=== PATIENT | female | born 1995 | race Caucasian/White ===

== ENCOUNTER 2022-08-17 13:59 | Outpatient (CLI) | payer OTHER, SELFPAY ==
--- NOTE | 2022-08-17 14:00 | CRLHL7_ITS ---
For Patients: As a result of the Cures Act, medical imaging exams and procedure reports are released immediately into your electronic medical record. You may view this report before your referring provider. If you have questions, please contact your health care provider. INDICATION: First trimester scan, establish dates. COMPARISON: None. TECHNIQUE: Real-time jara-scale imaging of the pelvis was performed. FINDINGS: Sonographic imaging demonstrates a single living intrauterine gestation. The embryo demonstrates a regular cardiac rate measuring 160 beats per minute. The embryo`s crown-rump length measurement of 4.0 cm corresponds to a gestational age of 10 weeks 6 days with a sonographic due date of 03/09/2023. There is a normal-appearing yolk sac. There are no gross abnormalities noted within the embryo at this early state of development. The gestational sac has a normal appearance. There is no evidence of a perigestational hemorrhage. The amount of fluid within the sac appears appropriate for gestational age. The cervix is closed. The myometrium appears normal. The ovaries are of normal size. There are no suspicious fluid collections noted in the cul-de-sac. IMPRESSION: Normal first trimester OB ultrasound exam. Gestational age calculated at 10 weeks 6 days with a sonographic due date of 03/09/2023. Dictated by Ozzy Benito MD @ 08/18/2022 11:22:22 AM (Electronically Signed)
== END 2022-08-17 14:00 | disposition home or self-care (01) ==
LOC: US 14:02
PROVIDERS: PCP Advanced Practice Midwife; Visit Provider Registered Nurse
DX: Z34.92 Encounter for supervision of normal pregnancy, unspecified, second trimester (principal); O35.AXX0 Maternal care for other (suspected) fetal abnormality and damage, fetal facial anomalies, not applicable or unspecified; Z3A.19 19 weeks gestation of pregnancy
CPT/HCPCS: 76801

== ENCOUNTER 2022-08-17 15:30 | Outpatient (CLI) | payer OTHER, SELFPAY ==
[2022-08-17 18:11] LABS: HIV 1/2/P24 Combo Screen* Negative (Negative)
[2022-08-17 21:09] LABS: Hepatitis B Surface Antigen* Negative (Negative)
[2022-08-17 21:26] LABS: Hepatitis C Virus Antibody* Negative (Negative)
[2022-08-17 21:43] LABS: Chlamydia DNA Amplified* NOT DETECTED (No Detected); GC DNA Amplified* NOT DETECTED (No Detected)
[2022-08-19 23:52] LABS: Rapid Plasma Reagin (RPR) Non Reactive (Non Reactive)
[2022-08-20 03:42] LABS: Varicella-Zoster Virus Ab, IgG 912.1 IV
[2022-08-20 03:47] LABS: Rubella Antibody IgG 6.5 IU/mL
== END 2022-08-17 15:31 | disposition home or self-care (01) ==
PROVIDERS: PCP Advanced Practice Midwife; Visit Provider Advanced Practice Midwife
DX: Z34.91 Encounter for supervision of normal pregnancy, unspecified, first trimester (principal); Z3A.10 10 weeks gestation of pregnancy
CPT/HCPCS: 86592; 86703; 86762; 86787; 86803; 86850; 86900; 86901; 87086; 87340; 87491; 87591

== ENCOUNTER 2022-10-18 12:52 | Outpatient (CLI) | payer OTHER, SELFPAY ==
--- NOTE | 2022-10-18 13:00 | CRLHL7_ITS ---
For Patients: As a result of the Century Cures Act, medical imaging exams and procedure reports are released immediately into your electronic medical record. You may view this report before your referring provider. If you have questions, please contact your health care provider. INDICATION: Evaluate anatomy. COMPARISON: 08/17/2022 TECHNIQUE: Real time jara scale imaging of the fetus was performed as well as color Doppler analysis of the umbilical vessels. FINDINGS: Sonographic imaging demonstrates a single living intrauterine gestation. Fetus demonstrates a regular cardiac rate of 152 beats per minute. Fetus has a vertex position. The placenta lies posteriorly without evidence of placenta previa. The edge of the placenta is located 4.3 cm from the internal cervical os. Amniotic fluid volume appears normal. Single deepest vertical pocket: 3.4 cm. The cervix is closed and measures 4.3 cm in length. The composite ultrasound gestational age is calculated at 19 weeks 5 days with an estimated sonographic due date of 03/09/2023. The estimated weight is 300 grams which lies at the 37th %. The following biometric measurements were obtained: Biparietal diameter: 4.4 cm/19 weeks 3 days 37th% Head circumference: 16.4 cm/19 weeks 1 day 17th% Abdominal circumference: 14.8 cm/20 weeks 1 day 58th% Femur length: 3.0 cm/19 weeks 1 day 22nd% The HC/AC ratio measures: 1.10 range (1.08-1.26) On anatomic survey, there is a normal appearance of the cerebral ventricles, cavum septi pellucidi, cisterna magna and cerebellum. Incomplete visualization of the nose and lips due to position. Normal profile. The cervical, thoracic and lumbar spine are well visualized and appear normal. There is a normal four-chamber heart view and the left and right ventricular outflow tracts appear normal. The diaphragm and stomach appear normal. The kidneys and bladder also appear normal. Incidental pelviectasis regarding 1 of the kidneys measuring 3.6 millimeters considered normal. There is a normal three-vessel cord and cord insertion site. The four extremities appear normal. IMPRESSION: Concordance of clinical and sonographic dating. Incomplete visualization of the nose and lips due to position. Remainder of the anatomic survey is unremarkable. Incidental pelviectasis of 1 of the kidneys measuring 3.6 millimeters is considered normal. Short-term follow-up of the nose and lips suggested. Dictated by Ozzy Benito MD @ 10/19/2022 10:22:20 AM (Electronically Signed)
== END 2022-10-18 12:53 | disposition home or self-care (01) ==
LOC: US 12:53
PROVIDERS: Visit Provider Advanced Practice Midwife
DX: Z34.92 Encounter for supervision of normal pregnancy, unspecified, second trimester (principal); Z3A.19 19 weeks gestation of pregnancy
CPT/HCPCS: 76805

== ENCOUNTER 2022-12-15 08:28 | Outpatient (CLI) | payer MEDICAID, SELFPAY | END 2022-12-15 08:29 | disposition home or self-care (01) | LOC: LKVREF 08:29 | PROVIDERS: Visit Provider Advanced Practice Midwife | DX: Z34.93 Encounter for supervision of normal pregnancy, unspecified, third trimester (principal); Z3A.28 28 weeks gestation of pregnancy | CPT/HCPCS: 82950; 85461; 86592; 86850; 86870; 86880; 86900; 86901; J2791 ==

== ENCOUNTER 2023-02-08 14:18 | Outpatient (CLI) | payer BC, SELFPAY ==
[2023-02-09 13:53] LABS: Strep B DNA Probe NEGATIVE (Negative)
[2023-02-09 14:57] LABS: Strep B Pen/Amox Allergy No
== END 2023-02-08 14:19 | disposition home or self-care (01) ==
LOC: NFLDREF 14:18
PROVIDERS: Visit Provider Advanced Practice Midwife
DX: Z34.93 Encounter for supervision of normal pregnancy, unspecified, third trimester (principal); Z3A.35 35 weeks gestation of pregnancy
CPT/HCPCS: 87081; 87653

== ENCOUNTER 2023-02-15 15:00 | Outpatient (CLI) | payer BC, SELFPAY ==
--- NOTE | 2023-02-15 15:00 | CRLHL7_ITS ---
For Patients: As a result of the Cures Act, medical imaging exams and procedure reports are released immediately into your electronic medical record. You may view this report before your referring provider. If you have questions, please contact your health care provider. INDICATION: MEASURING SMALL FOR DATES COMPARISON: 10/18/2022 TECHNIQUE: Real time jara scale imaging of the fetus was performed as well as color Doppler and spectral Doppler analysis of the umbilical artery. FINDINGS: Sonographic imaging demonstrates a single living intrauterine gestation. Fetus demonstrates a regular cardiac rate of 132 beats per minute. Fetus has a vertex position. The placenta lies posteriorly. Amniotic fluid volume appears normal and there is a single deepest vertical pocket: 5.6 cm. The estimated weight is 2447gm which lies at the 7th %. On the prior OB ultrasound exam dated 10/18/2022 the estimated weight was at the %. BPD 4th percentile. HC less than 3rd percentile. AC 20th percentile. FL less than 3rd percentile. The HC/AC ratio measures 0.99 range (0.94-1.11). There is adequate diastolic blood flow within the umbilical artery. The S/D ratio measures 2.9. Normal gross body movements and tone. Absent respiratory activity. IMPRESSION: Sonographic gestational age 34 weeks 2 days and sonographic due date 03/27/2023. Sonographic age 18 days behind the clinical age. Estimated weight 7th percentile. Abdominal circumference 28th percentile. Head circumference and femur length less than 3rd percentile. Biophysical profile 12/09. Dictated by Ozzy Benito MD @ 02/16/2023 12:42:08 PM (Electronically Signed)
== END 2023-02-15 15:01 | disposition home or self-care (01) ==
LOC: US 15:01
PROVIDERS: Visit Provider Advanced Practice Midwife
DX: Z34.83 Encounter for supervision of other normal pregnancy, third trimester (principal); Z36.89 Encounter for other specified antenatal screening; Z3A.36 36 weeks gestation of pregnancy
CPT/HCPCS: 76816; 76819; 76820

== ENCOUNTER 2023-02-22 08:51 | Outpatient (CLI) | payer BC, SELFPAY ==
--- NOTE | 2023-02-22 09:15 | CRLHL7_ITS ---
For Patients: As a result of the Cures Act, medical imaging exams and procedure reports are released immediately into your electronic medical record. You may view this report before your referring provider. If you have questions, please contact your health care provider. INDICATION: female. Small for gestational age. Follow-up. TECHNIQUE: Transabdominal obstetrical ultrasound. Color Doppler waveform analysis of the umbilical artery. COMPARISON: February 15, 2023. FINDINGS: Single living intrauterine in vertex presentation. Posterior placenta. heart rate 134 beats per minute. Normal amniotic fluid. Single deepest pocket measurement 6 cm. The umbilical artery systolic to diastolic ratio is 2 point is 2.4 which is within normal limits. Biophysical profile score 8/8 with 2 points given each for breathing, movement, tone, and amniotic fluid. IMPRESSION : Single living intrauterine with a biophysical profile score of 8 out of 8. Umbilical artery systolic to diastolic ratio is within normal limits at 2.4. Dictated by Evert Carmichael MD @ 02/23/2023 10:03:08 PM (Electronically Signed)
== END 2023-02-22 08:52 | disposition home or self-care (01) ==
LOC: US 08:51
PROVIDERS: Visit Provider Advanced Practice Midwife
DX: Z34.93 Encounter for supervision of normal pregnancy, unspecified, third trimester (principal); Z3A.37 37 weeks gestation of pregnancy
CPT/HCPCS: 76819; 76820

== ENCOUNTER 2023-02-25 06:50 | Inpatient (IN) | payer BC, SELFPAY ==
[2023-02-25] VITALS (17 sets, daily range): BP systolic 100–132; BP diastolic 55–81; PULSE 58–82; RESP 16; TEMP 36.7–37; O2SAT 96–97; BMI 25.4
--- NOTE | 2023-02-25 08:00 | P.LDBA_ITS ---
Subjective History of Present Illness Date Seen: 02/25/23 Narrative: Patient is being admitted to Labor and Delivery for IOL for IUGR. She is a 27 year old at 38.2 weeks gestation. Her full history and physical was dictated by Gerardo Martel CNM on 02/15/23. Please see this for details. Tania denies feeling contractions, leaking fluids or abnormal discharge. She feels that she lost her mucus plug earlier this week. She is appreciating good movement. We had an extensive discussion about IOL options including Cytotec, cook catheter, Pitocin and AROM. Risk and benefits of each discussed. Baby feels low but ballotable so decision was made to proceed with Pitocin and consider AROM later. 1. A Negative - Needs RhoGam 28 w: 12/15/2022 PP: 2. Rubella non-immune - needs MMR pp. 3. Missing nose and lip views on anatomy scan. Declined follow up u/s. 4. Measuring small for dates. Growth US: &5, BPD 4%, HC <3%, AC 20%, FL <3%. Consulted with Dr. Sher ARMSTRONG on 02/18, BPP with dopplers on 02/22 Delivery at 38.0-38.6 weeks Specific Issues/Plans FOB Sylvester (they are not together). Planning on having her sister for her main support. Only wants Sylvester present for the beginning of labor. H&P 02/15/23 by Jose Martel CNM IOL scheduled for 02/25 1. A Negative - Needs RhoGam 28 w: 12/15/2022 PP: 2. Rubella non-immune - needs MMR pp. 3. Missing nose and lip views on anatomy scan. Declined follow up u/s. 4. Measuring small for dates. Growth US: &5, BPD 4%, HC <3%, AC 20%, FL <3%. Consulted with Dr. Sher ARMSTRONG on 02/18, BPP with dopplers on 02/22 Delivery at 38.0-38.6 weeks COVID: declines FLU: declines Tdap: OB - Problem Based A/P Additional Plan (1) Encounter for induction of labor: Status: Acute (2) growth restriction: Status: Acute Plan ASSESSMENT:? at 38.2 weeks gestation? GBS negative A-? Uncomplicated ? IOL for IUGR? ?? PLAN:? 1. Reviewed risks and benefits of IOL with pitocin vs cytotec vs cook catheter vs AROM. Pt prefers Pitocin. Can consider AROM to follow if needed.? 2. Desires water . Consent signed. Hep C negative.? 3. Candidate for analgesia of choice. Planning unmedicated .? 4. Anticipate ? 5. IV in place for Pitocin administration. 6. Continuos monitoring per unit policy while on Pitocin. ? Delivery/Labor/Induction Plan Plan: induction Induction method: per pitocin protocol OB Result Labs Blood Type: A (-) negative GBS Status: negative OB Exam Physical Exam Vital signs: Temp Pulse Resp BP 98.4 F 76 16 122/77 02/25/23 07:43 02/25/23 07:41 02/25/23 07:43 02/25/23 07:41 Narrative: Psychiatric:? Alert and oriented x3? HEENT:? Normocephalic, atraumatic? Neck:? Supple without adenopathy or thyromegaly? Lungs:? Clear to auscultation bilaterally? Heart:? Regular rate and rhythm, no murmur, rub or gallop? Abdomen:? Soft, nontender, and gravid? Extremities:? No edema or erythema? Detailed Labor and Delivery Exam Patient Gravid: Yes Dilation (cm): 4 Effacement (%): 90 Cervix position: mid Consistency: soft Contraction Frequency: none per TOCO or pt report Fetus (Single) Station: -1 Amniotic Membrane Status: intact Heart Rate Baseline: 120 Monitor Accelerations: Present Monitor Decelerations: None Kennel Technician Variability: Moderate (6-25)
[2023-02-25] MEDS: LACTATED RINGERS 1000 ML 1,000 ML 125 ML IV (08:41)
[2023-02-25] MEDS: OXYTOCIN 30 unit/500 ML in NS 30 UNIT/500 ML BAG IVPB (08:46)
--- NOTE | 2023-02-25 16:53 | W.PM.OBVAGDE ---
OB Procedure Vag Delivery Mother Details Mother Details: The patient is a 27 year-old, 2, Para 1, admitted on 02/25/23 at 38.2 Days gestation.Patient was admitted for IOL for IUGR. She was started on Pitocin after admission and AROM was performed to augment labor. She did not feel painful contractions until approximately 2 hours after AROM. She then choose to get into the tub to labor. After she was determined to be complete the Pitocin was turned off as she was elizabeth regularly and there were variable decelerations noted with some contractions. She continued to progress and pushing with the urge to delivery. AROM noted at 1206 with clear fluid. Patient was complete at 1442 and pushing at 1456. of a viable male at 1554 in hands and knees in the tub. She pushing in multiple positions in the tub. Vertex delivered LANE. No nuchal cord or shoulder. Body delivered easily and without incident. passed to mothers abdomen with a vigorous cry. There was a very short cord so she was instructed to sit on the tub seat out of the water and held baby low on her abdomen so there was not excessive force on the cord. Cord was clamped and cut at > 5 minutes. APGARS were 7 at one minute and 9 at five minutes respectively. Mouth was bulb suctioned. Intact placenta with a 3 vessel cord delivered spontaneously at 1620. There were trailing membranes after the placenta was out that did delivery with teasing. There was a question if the membranes tore at the very end with a possibility of retained membranes. A manual sweep was performed to search for retained products but none were found. A couple of small to medium clots were removed. She used nitrous during the procedure and tolerated fairly. A one time prophylactic dose of antibiotics was ordered. Signs of retained products were reviewed with the patient and her support person. Placenta was sent to pathology. Fundus firm. The perineum was found to be intact. QBL 125 cc plus EBL 75 on the pads under her. Mother and baby stable; mother plans to breastfeed. weight 6lb 7oz.? : 2 Para: 2 Weeks Gestation: 38.2 Admission Date: 02/25/23 Additional Details Amniotic Membrane Status: AROM Amniotic Membrane Rupture Date: 02/25/23 Amniotic Membrane Rupture Time: 12:06 Amniotic Membrane Fluid Description: Clear Analgesia/Anesthesia Type: Nitrous Oxide Waterbirth: Yes Pitcoin: Yes (for induction and ) Intrapartal Events: Labor Induction Induction Method: per pitocin protocol Delivery augmentation: rupture of membranes Labor Onset: 14:00 Complete: 14:42 Pushin:56 Heart: heart tones during second stage were category 2. Baseline 100-110, +accels and moderate variability. Variable decels to the 70's with >50% of the contractions with good return to baseline and maintenance of good variability. Heart tones noted to be in the 90's for about 2 minutes with . Delivery Details Delivery Date: 02/25/23 Delivery Time: 15:54 Route of delivery: Gender: Male Viability: Alive; Heart Rate Present Position at Delivery: OA 1 Minute Interval Total Score: 7 5 Minute Interval Total Score: 9 Additional Details Shoulder Dystocia: No Placenta Delivery Time: 16:20 Placental Delivery Description: Spontaneous (spontaneous delivery with trailing membranes. Manual sweep to check for retained products. ) Procedure Done: Global Blood Loss: 200 (175 QBL, 75 EBL) Laceration: None Episiotomy Description: None Blood Loss Measurement Type: QBL Bakri Used: No Sponge/Need Count Correct: Yes Cord Vessel Description: 3 Vessels (very short cord) Event Summary Status: Mother and infant were stable after delivery. Disposition: floor
[2023-02-25] MEDS: AMPICILLIN 2 GM in 0.9 % SODIUM CHLORIDE Mini-bag 100 ML IVPB (17:49)
[2023-02-26 02:30] VITALS: BP 109/64; PULSE 59; RESP 16; TEMP 36.7; O2SAT 97
[2023-02-26 05:40] VITALS: BP 113/74; PULSE 78; RESP 16; TEMP 36.7; O2SAT 97
[2023-02-26] MEDS: IBUPROFEN 600 MG TABLET PO (05:44)
[2023-02-26 09:05] VITALS: BP 116/82; PULSE 70; RESP 16; TEMP 36.6; O2SAT 97
--- NOTE | 2023-02-26 09:24 | P.DS_ITS ---
DS: Providers Provider Time Seen by Provider: 09:25 Date Seen: 02/26/23 Date of admission: 02/25/23 06:50 Primary care physician: Not a Local Provider Admitting Clinician: Mahnaz Martel CNM Attending Physician on discharge: Mahnaz Martel CNM Date of Discharge: 02/26/23 DS: Diagnosis Discharge Diagnosis (1) Normal spontaneous vaginal delivery: Status: Acute (2) Lactating mother: Status: Acute Exam Narrative: Exam Narrative: VSS, afebrile GENERAL APPEARANCE: ?normal affect, alert, no distress MOOD: ?appropriate HEENT: normocephalic, neck supple, full ROM CHEST: ?Symmetrical chest wall movement. ?Normal respiratory effort. ?Clear to auscultation HEART: ?regular rate and rhythm ABDOMEN: ?soft, non-tender. Uterine fundus is firm, at Umbilicus, Midline and is appropriate for the stage of recovery. ?Bowel sounds present. PERINEUM: ?mild edema of the perineum, there are no lacerations EXTREMITIES: ?normal and no edema Const: Vital Signs, click to edit/add: Vital Signs - 24 hr 02/25/23 10:43 02/25/23 10:50 02/25/23 12:28 Temperature 98.1 F Pulse Rate 72 Pulse Rate [Pulse Oximeter] Respiratory Rate 16 Blood Pressure 115/61 Blood Pressure [Ri ght Arm] Pulse Oximetry 97 Oxygen Delivery Me thod 02/25/23 12:52 02/25/23 16:28 02/25/23 16:33 Temperature 98.6 F Pulse Rate 68 60 Pulse Rate [Pulse Oximeter] Respiratory Rate 16 Blood Pressure 100/55 L 120/81 Blood Pressure [Ri ght Arm] Pulse Oximetry Oxygen Delivery Me thod 02/25/23 16:44 02/25/23 16:44 02/25/23 16:59 Temperature 98.6 F Pulse Rate 71 75 Pulse Rate [Pulse Oximeter] Respiratory Rate 16 Blood Pressure 117/81 132/66 Blood Pressure [Ri ght Arm] Pulse Oximetry 97 Oxygen Delivery Me thod 02/25/23 16:59 02/25/23 17:13 02/25/23 17:13 Temperature 98.6 F 98.6 F Pulse Rate 65 Pulse Rate [Pulse Oximeter] Respiratory Rate 16 16 Blood Pressure 125/72 Blood Pressure [Ri ght Arm] Pulse Oximetry 97 97 Oxygen Delivery Me thod 02/25/23 17:28 02/25/23 17:28 02/25/23 17:43 Temperature 98.6 F Pulse Rate 67 58 L Pulse Rate [Pulse Oximeter] Respiratory Rate 16 Blood Pressure 129/78 129/81 Blood Pressure [Ri ght Arm] Pulse Oximetry 97 Oxygen Delivery Me thod 02/25/23 17:43 02/25/23 17:58 02/25/23 17:58 Temperature 98.6 F 98.6 F Pulse Rate 67 Pulse Rate [Pulse Oximeter] Respiratory Rate 16 16 Blood Pressure 121/72 Blood Pressure [Ri ght Arm] Pulse Oximetry 97 97 Oxygen Delivery Me thod 02/25/23 18:13 02/25/23 18:13 02/25/23 18:28 Temperature 98.6 F Pulse Rate 70 69 Pulse Rate [Pulse Oximeter] Respiratory Rate 16 Blood Pressure 120/72 116/66 Blood Pressure [Ri ght Arm] Pulse Oximetry 97 Oxygen Delivery Me thod 02/25/23 18:28 02/25/23 21:43 02/26/23 02:30 Temperature 98.6 F 98.4 F 98.1 F Pulse Rate Pulse Rate [Pulse Oximeter] 70 59 L Respiratory Rate 16 16 16 Blood Pressure Blood Pressure [Ri ght Arm] 126/74 109/64 Pulse Oximetry 97 96 97 Oxygen Delivery Me thod Room Air Room Air 02/26/23 05:40 02/26/23 09:05 Temperature 98.1 F 97.8 F Pulse Rate Pulse Rate [Pulse Oximeter] 78 70 Respiratory Rate 16 16 Blood Pressure Blood Pressure [Ri ght Arm] 113/74 116/82 Pulse Oximetry 97 97 Oxygen Delivery Me thod Room Air Room Air Documenting provider has reviewed patient's vital signs: yes OB - DS: Summary Hospital Course Hospital Course: Tania is a 27 y.o. G 2 P 2 who was admitted to [facility] & [facility] for IOL for IUGR. ?She had an uncomplicated NVD, though there were concerns about the completeness of the placenta membranes. Sweep of uterus done, nothing noted and antibiotics given. Tania is aware of what to observe for for retained membranes. The patient feels well. ?The pain is well controlled with current medications. ?She has no new complaints. ?She is breast feeding and reports things are going well.? the patient has done well.? Vitals have been stable.? She has remained afebrile.? Has a good appetite, is tolerating a general diet. ?She is voiding without difficulty.? She is passing gas and has had a bowel movement.? She is ambulating and denies any dizziness.? Has Small amount of rubra lochia. Problems: none plan: Discharge home with baby. Follow up in 2 weeks and 6 weeks. , may follow up with if needed Infant Gender: Male Discharge Plan: Home Status at Discharge Functional status at discharge: independent ambulation Overall status at discharge: patient is progressing back to baseline Time Spent with Patient Time attestation: Total time spent providing and/or coordinating discharge services: Time spent: Less than 30 minutes Discharge Plan Discharge Disposition: Home, Self-Care Date of Admission: 02/25/23 06:50 Attending Provider on Discharge: Anahi Davis Primary Care Provider: Provider,Not a Local Condition: Stable Anticipated Discharge Date/Time: 02/26/23 17:00 Discharge Medications: New docusate sodium 100 mg Capsule 100 mg PO BID PRNQty: 100 0RF Rx Instructions: Take 1 cap 1-2 times a day as needed for constipation. ibuprofen 600 mg Tablet 600 mg PO Q6H PRNQty: 60 0RF Continued DHA 200 mg capsule 200 mg PO DAILY Rx Instructions: 200 mg orally; sertraline 50 mg tablet 50 mg PO QDAY Qty: 90 0RF Discharge Orders: Discharge Order (Routine); Ordered 02/26/23 Ordered By: Anahi Davis Patient Education: OB Over the Counter Medication Information, OB Vaginal/Breast Feeding Additional Instructions: Follow up in 2 weeks and 6 weeks Activity Level: Activity as Tolerated Discharge Diet: Regular Follow Up Appointments: Provider,Not a Local [Primary Care Provider] - Forms: Machine Talker Info Instructions
[2023-02-26 13:06] VITALS: BP 116/73; PULSE 70; RESP 16; TEMP 36.6; O2SAT 97
[2023-02-26 17:09] VITALS: BP 116/73; PULSE 70; RESP 16; TEMP 36.6; O2SAT 97
== END 2023-02-26 18:20 | disposition home or self-care (01) | DRG 560 ==
PROVIDERS: Admitting Provider Advanced Practice Midwife; Visit Provider Advanced Practice Midwife
DX: O36.5930 Maternal care for other known or suspected poor fetal growth, third trimester, not applicable or unspecified (principal); Z3A.38 38 weeks gestation of pregnancy; Z37.0 Single live birth
CPT/HCPCS: 88341; 88342; A9270; J0290; J7120

== ENCOUNTER 2023-03-28 14:40 | Outpatient (CLI) | payer BC, SELFPAY ==
--- NOTE | 2023-03-28 17:00 | W.PM.LAC.MC ---
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 Geren Jaundice: No Reason for Consult Reason for Consult: concern for tongue tie Past Experience Past Experience: Yes (nursed her older child for about a year) Current Frequency of Day Feedings: every 1 - 2 hours Frequency of Night Feedings: about every 2 hours Both Breasts: Yes Suck: strong initially Latch: wide but slips to nipple Length of Time: 5 - 10 minutes Goals: would like to be more seamless Pumping Pumping: Yes (enough to have supplement for baby) Quantity Pumped: 5 - 10 oz total each time she pumps Supplementing EMB Supplement: Yes (when given a bottle will take 2 - 3 oz) Formula Supplement: No Baby Elimination Number of Wet Diapers a Day: 8 - 10 times/24 hours Number of BM a Day: about 8 times/24 hours Breast/Nipple Condition Breast Information: WNL Maternal Nipple Condition - Left: Common Nipple Maternal Nipple Condition - Right: Common Nipple Sore Nipples: Yes Onsite Pre-Feed weight: 4.306 kg Post-Feed weight: 4.116 kg Milk Transferred (mL): 80 Assessments/Interventions Assessments/Interventions: Met with mom and this now one month old ex- term AGA baby for consult. Mom is concerned he may have a lip and/or tongue tie. She reports the first week of baby's life was going well, but it's gotten progressively more difficult. States he wants to nurse all the time during the day and if she wants him to sleep for a few hours she has to give him a bottle. He nurses a little less frequently overnight but it's still every 2 - 3 hours. She offers both sides and states he'll only nurse for about 5 minutes before he seems to get frustrated and starts latching, then unlatching. She thinks it's sometimes r/t her flow as he will come off choking and sputtering but at other times he just stops nursing. When he takes a bottle he will take 2 - 3 oz. They are using a Lansinoh level 1 nipple. Mom pumps about once/day and gets between 5 - 10 oz total each time. Also reports baby is very gassy and is uncomfortable if laid on his back immediately after feeding, spits up a little but denies any projectile vomiting. Breasts WNL- symmetrical with rounded lower quadrants, intramammary distance < 1.5 inches. Nipples are a little short but everted and they don't flatten or retract on compression. No damage noted but mom states they're sore and isn't as comfortable as it was with her older child at this age. Baby has gained 44 grams/day since his last visit on 03/11/23. Mom denies any caput/cephalohematoma at delivery and states he has equal ROM when turning his head or moving his extremities. He's been to a chiropractor a few times for gas and mom thinks this has helped. Baby's palate is slightly elevated. His upper frenulum doesn't really restrict the upper lip, but the gums do almita and he has a suck blister to the center of his upper lip. He has a strong suck on a finger. His tongue consistently extends past the gumline but there's canoeing when lateralizing. The lower frenulum wasn't visible, posterior? Mom latched baby to the left side in the cross cradle hold and for about the first 5 - 7 minutes he did well. He had a wide latch and mom was comfortable. After that initial time, he started to slip to the nipple and the latch became more pinched. There was some improvement in comfort when she was verbally coached to exaggerate pointing her nipple to his nose, but he slipped to the nipple after several suckles. No real improvement with breast compression, or when she burped him. After about a 15 minute attempt baby was weighed and had transferred 54 ml. Mom started with the cross cradle on the right but he slipped from a fairly deep latch to the nipple after only a few suckles. There was minimal improvement with a modified football where he was sitting more upright or with the reclined position. After about 20 minutes of trying these other positions and baby getting frustrated he was weighed again and had transferred 26 ml for a total of 80 ml. We discussed the idea of seeing a pediatric dentist as he could have a posterior tongue tie (both mom, her daughter, and her sister also have ties (mom's was not revised, her daughter had an upper lip tie that was not revised as ) but mom wanted to try the positions we worked on to see if with practice feedings got better. Plan: 1. Continue to nurse ALD, offering both sides and using the different positions tried today in clinic. Suggested she could also express a little milk before nursing at least with the morning feedings when she has more milk, and to try compression in the afternoon/evening when her supply is naturally a little less. Will also keep baby upright for about 15 min after feedings. 2. When she feels baby needs a bottle, suggested she and dad try paced feeding and/or a slower nipple. 3. Suggested she continue to pump daily so she has EBM ready for him. 4. Encouraged continued chiropractor visits. 5. Will f/u by phone on 04/04 and if there's not much improvement will give list of pediatric dentists. 6. Encouraged mom to attend the [place] [facility] and flyer given. Meds Home Medications and Allergies Home Medications Medication Instructions Recorded Confirmed Type docosahexaenoic acid 200 mg 200 mg PO DAILY 08/17/22 04/05/23 History capsule ( [facility]) Allergies Allergy/AdvReac Type Severity Reaction Status Date / Time No Known Allergies Allergy Unknown Verified 04/05/23 11:17
== END 2023-03-28 14:41 | disposition home or self-care (01) ==
PROVIDERS: Visit Provider Advanced Practice Midwife
DX: Z39.1 Encounter for care and examination of lactating mother (principal)
CPT/HCPCS: 99211

== ENCOUNTER 2023-06-21 15:45 | Outpatient (CLI) | payer BC, SELFPAY | END 2023-06-21 15:46 | disposition home or self-care (01) | PROVIDERS: Visit Provider Advanced Practice Midwife | DX: N89.8 Other specified noninflammatory disorders of vagina (principal) | CPT/HCPCS: 87086 ==